=== PATIENT | male | born 1940 | race Caucasian/White ===

== ENCOUNTER 2017-07-02 12:38 | Observation (INO) | payer MEDICARE, OTHER ==
--- NOTE | 2017-07-02 13:21 | EDM.PDOC ---
ED HPI GENERAL MEDICAL PROBLEM - General Chief Complaint: Syncope Stated Complaint: DIZZINESS Time Seen by Provider: 07/02/17 12:59 Source of Information: Reports: Patient History Limitations: Reports: No Limitations - History of Present Illness INITIAL COMMENTS - FREE TEXT/NARRATIVE: This patient is a pleasant 76 year old male that presents to the ER. The patient reports that he was [place] the post office this [place] in [place]. He was standing and talking to a friend, he reports reaching down for something and saying he felt dizzy, then passing out falling backwards. He reports his friend told him he "came to" after he fell. The patient reports that he felt dizzy prior to the fall and has some dizziness now. He reports that he feels generally weak. Patient reports that he had fallen about two months ago from dizziness then and all tests were normal. The patient reports that he has a mild posterior headache where he hit the ground and left posterior hip pain. The patient reports that after he fell this morning at the post office, he was able to get up and drive himself home 10 miles without difficulty. The patient denies n, v, d, f, cp, soa, abd pain, urinary changes, rashes. The patient denies any unilateral weaknesses. Patient in the ER was able to ambulate to the bathroom without difficulty, but with assistance. The patient is fully alert and oriented. The patient reports that for several weeks he has pressure in his "eustachian tubes." He reports that his hearing bilaterally has been muffled. Patient denies any seizure activity or any confusion period. Extremities, pulses +2, cap refill < 2sec, sensory/motor function intact, neurovascular intact. No shortening. Onset: Today Onset Date: 07/02/17 Onset Time: 09:00 Location: Reports: Head, Lower Extremity, Left Severity: Mild Improves with: Reports: None Worsens with: Reports: None Associated Symptoms: Reports: Headaches, Syncope, Weakness (generally). Denies : Confusion, Chest Pain, Cough, cough w sputum, Diaphoresis, Fever/Chills, Loss of Appetite, Malaise, Nausea/Vomiting, Rash, Seizure, Shortness of Breath Left Hip Pain Score (Numeric/FACES): 4 - Related Data Allergies Allergy/AdvReac Type Severity Reaction Status Date / Time amoxicillin [From Augmentin] Allergy Rash Verified 12/10/16 09:36 atorvastatin [From Lipitor] Allergy Body Aches Verified 12/10/16 09:36 clavulanic acid Allergy Rash Verified 12/10/16 09:36 [From Augmentin] mushroom Allergy Cannot Verified 07/02/17 12:45 Remember propoxyphene Allergy Rash Verified 12/10/16 09:36 tomato Allergy Hives Verified 12/10/16 09:36 bee sting Allergy Fainting Uncoded 12/10/16 09:36 Home Meds: Home Meds Aspirin [Ecotrin] 325 mg PO DAILY 12/07/16 [History] Ezetimibe [Zetia] 10 mg PO DAILY 12/07/16 [History] Metoprolol Succinate 50 mg PO DAILY 12/07/16 [History] Nitroglycerin [Nitrostat] 0.4 mg SL ASDIRECTED PRN 12/07/16 [History] Simvastatin [Zocor] 80 mg PO DAILY 12/07/16 [History] Folic Acid 0.8 mg PO DAILY 07/02/17 [History] Past Medical History HEENT History: Reports: Hard of Hearing, Impaired Vision Cardiovascular History: Reports: Bypass Musculoskeletal History: Reports: Arthritis Neurological History: Reports: Head Trauma Psychiatric History: Reports: Addiction Other Psychiatric History: Nicotine Oncologic (Cancer) History: Reports: Prostate Other Oncologic History: Prostate removed - Past Surgical History Cardiovascular Surgical History: Reports: Coronary Artery Bypass Social & Family History - Tobacco Use Smoking Status *Q: Current Every Day Smoker Years of Tobacco use: 60 Packs/Tins Daily: 0.5 - Caffeine Use Caffeine Use: Reports: Coffee - Recreational Drug Use Recreational Drug Use: No ED ROS GENERAL - Review of Systems Review Of Systems: See Below Constitutional: Reports: Weakness (generalized) HEENT: Reports: Hearing Loss (muffled bilaterally ), Other (pressure in tubes per patient. ) Respiratory: Reports: No Symptoms Cardiovascular: Reports: Lightheadedness, Syncope Endocrine: Reports: No Symptoms GI/Abdominal: Reports: No Symptoms : Reports: No Symptoms Musculoskeletal: Reports: Joint Pain (left posterior hip pain) Skin: Reports: No Symptoms Neurological: Reports: Headache (posterior mild), Syncope Psychiatric: Reports: No Symptoms Hematologic/Lymphatic: Reports: No Symptoms Immunologic: Reports: No Symptoms - Physical Exam Exam: See Below Exam Limited By: No Limitations General Appearance: Alert, WD/WN, No Apparent Distress Eye Exam: Bilateral Eye: EOMI, Normal Fundi, Normal Inspection, PERRL Ears: Normal External Exam, Normal Canal, Hearing Grossly Normal, Normal TMs Nose: Normal Inspection, Normal Mucosa, No Blood Throat/Mouth: Normal Inspection, Normal Lips, Normal Teeth, Normal Gums, Normal Oropharynx, Normal Voice, No Airway Compromise Head Exam: Scalp Ecchymosis (mild posterior), Scalp Tenderness (mild posterior) Neck: Normal Inspection, Supple, Non-Tender, Full Range of Motion. No: Limited Range of Motion, Tender Lateral, Tender Midline Respiratory/Chest: No Respiratory Distress, Lungs Clear, Normal Breath Sounds, No Accessory Muscle Use, Chest Non-Tender Cardiovascular: Normal Peripheral Pulses, Regular Rate, Rhythm, No Edema, No Gallop, No JVD, No Murmur, No Rub GI/Abdominal: Normal Bowel Sounds, Soft, Non-Tender, No Organomegaly, No Distention, No Abnormal Bruit, No Mass, Pelvis Stable Neuro Exam (Abbreviated): Alert, Oriented, CN II-XII Intact, Normal Cognition, Normal Gait, No Motor/Sensory Deficits. No: Inattentive, Confused, Disoriented , Slow to Respond, Unresponsive, Memory Loss Recent Events, Abnormal Gait, Sensory/Motor Deficit Back Exam: Normal Inspection, Full Range of Motion. No: CVA Tenderness (L), CVA Tenderness (R) Extremities: Normal Inspection, Normal Range of Motion, No Pedal Edema, Normal Capillary Refill, Other (left posterior hip mild tenderness. ). No: Joint Swelling, Arm Pain, Limited Range of Motion, Mottled, Pallor, Redness Psychiatric: Normal Affect, Normal Mood Skin Exam: Warm, Dry, Intact, Normal Color, No Rash, Ecchymosis (mild posterior scalp. ) EKG INTERPRETATION EKG Date: 07/02/17 Time: 13:21 Rhythm: NSR Rate (Beats/Min): 63 [place]: Normal P-Wave: Present QRS: Normal ST-T: Normal QT: Normal Course - Vital Signs Last Recorded V/S: Last Vital Signs Temp 97.4 F 07/02/17 12:41 Pulse 61 07/02/17 12:41 Resp 16 07/02/17 12:41 BP 169/77 H 07/02/17 12:41 Pulse Ox 97 07/02/17 12:41 - Orders/Labs/Meds Orders: Active Orders 24 hr Category Date Time Status EKG Documentation Completion [RC] STAT Care 07/02/17 12:59 Inactive Cervical Spine wo Cont [CT] Stat Exams 07/02/17 13:01 Ordered Chest 2V [CR] Stat Exams 07/02/17 13:01 Taken Head wo Cont [CT] Stat Exams 07/02/17 12:59 Taken Hip Min 2V or 3V w Pelvis Lt [CR] Stat Exams 07/02/17 13:01 Taken Sodium Chloride 0.9% [Normal Saline] 1,000 ml Med 07/02/17 13:42 Active IV .BOLUS Medication Orders Sodium Chloride (Normal Saline) 1,000 mls @ 1,000 mls/hr IV .BOLUS ONE Stop: 07/02/17 14:41 Last Admin: 07/02/17 13:54 Dose: 1,000 mls/hr Labs: Laboratory Tests 07/02/17 07/02/17 07/02/17 Range/Units 13:05 13:05 13:05 WBC 13.1 H (5.0-10.0) 10^3/uL RBC 5.31 (4.50-6.00) 10^6/uL Hgb 13.4 L (14.0-18.0) g/dL Hct 41.4 (40.0-54.0) % MCV 78.0 L (82.0-94.0) fL MCH 25.2 L (27.0-32.0) pg MCHC 32.4 L (33.0-38.0) g/dL RDW Coeff of Mary 16.5 H (11.0-15.0) % Plt Count 283 (150-400) 10^3/uL Neut % (Auto) 79.9 (35-85) % Lymph % (Auto) 10.1 (10-55) % [place] % (Auto) 9.1 (0-16) % Eos % (Auto) 0.4 (0-5) % Baso % (Auto) 0.5 (0-3) % Neut # (Auto) 10.49 H (1.80-7.00) 10^3/uL Lymph # (Auto) 1.32 (1.00-4.80) 10^3/uL [place] # (Auto) 1.20 H (0.00-0.80) 10^3/uL Eos # (Auto) 0.05 (0.00-0.45) 10^3/uL Baso # (Auto) 0.07 10^3/uL Sodium 142 (136-145) mEq/L Potassium 4.8 (3.5-5.0) mEq/L Chloride 106 (98-106) mEq/L Carbon Dioxide 26 (21-32) mmol/L BUN 25 H (7-18) mg/dL Creatinine 1.5 H (0.7-1.3) mg/dL Est Cr Clr Drug Dosing 38.37 mL/min Estimated GFR (MDRD) 45 L (>=60) mL/min Glucose 99 (75-99) mg/dL Calcium 8.9 (8.4-10.1) mg/dL Total Bilirubin 0.7 (0.0-1.0) mg/dL AST 20 (15-37) U/L ALT 14 (12-78) U/L Alkaline Phosphatase 60 (46-116) U/L Creatine Kinase 151 (35-232) U/L Troponin I < 0.017 (0.00-0.06) ng/mL [id number] Pept 235 (0-1000) pg/nL Total Protein 7.2 (6.4-8.2) g/dL Albumin 3.9 (3.4-5.0) g/dL Urine Color Dark yellow (YELLOW) Urine Appearance Clear (CLEAR) Urine pH 5.5 (4.5-8.0) Ur Specific [place] 1.025 H (1.003-1.020) Urine Protein Trace H (NEGATIVE) mg/dL Urine Glucose (UA) Negative (NEGATIVE) mg/dL Urine Ketones Trace H (NEGATIVE) mg/dL Urine Occult Blood Negative (NEGATIVE) Urine Nitrite Negative (NEGATIVE) Urine Bilirubin Negative (NEGATIVE) Urine Urobilinogen 0.2 (0.2-1.0) EU/dL Ur Leukocyte Esterase Trace H (NEGATIVE) Urine RBC 0-5 (0-5) /HPF Urine WBC 5-10 H (0-5) /HPF Urine WBC Clumps Occasional H (NOT SEEN) /HPF Ur Squamous Epith Cells Few H (NOT SEEN) /HPF Urine Bacteria Occasional H (NOT SEEN) /HPF Urine Mucus Few H (NOT SEEN) /HPF Meds: Medications Generic Name Dose Route Start Last Admin Trade Name Freq PRN Reason Stop Dose Admin Sodium Chloride 1,000 mls @ 1,000 mls/hr 07/02/17 13:42 07/02/17 13:54 Normal Saline IV 07/02/17 14:41 1,000 mls/hr .BOLUS ONE Administration Discontinued Medications Generic Name Dose Route Start Last Admin Trade Name Melba PRN Reason Stop Dose Admin Ceftriaxone Sodium 1 gm 07/02/17 13:43 07/02/17 13:57 Rocephin IVPUSH 07/02/17 13:44 1 gm ONETIME ONE Administration - Radiology Interpretation Free Text/Narrative:: CXR: No infiltrates, no pulmonary edema, no hemo or pneumo thorax. Left hip: OA, no fx, no dislocation. CT cervical interpreted : no fx, normal exam. CT Head interpreted by radiologis: subarachnoid blood left sulci frontal trace. No subdural, no shift. - Re-Assessments/Exams Free Text/Narrative Re-Assessment/Exam: 07/02/17 14:27 I called and spoke to Dr. Frey neurosurgeon [facility] about this patient. He reported that there is nothing that he would do for this patient. He would not repeat a ct scan either. Said since I am admitted for renal insufficiency, just monitor him, could discharge tomorrow from neurosurgeon end. Departure - Departure Time of Disposition: 14:30 Disposition: Refer to Observation Condition: Fair Clinical Impression: Renal insufficiency, Subarachnoid bleed Urinary tract infection Qualifiers: Urinary tract infection type: urethritis Qualified Code(s): N34.2 - Other urethritis Syncope Qualifiers: Syncope type: unspecified Qualified Code(s): R55 - Syncope and collapse - Discharge Information Forms: ED Department Discharge - My Orders Last 24 Hours: My Active Orders 07/02/17 12:59 EKG Documentation Completion [RC] STAT Head wo Cont [CT] Stat 07/02/17 13:01 Cervical Spine wo Cont [CT] Stat Chest 2V [CR] Stat Hip Min 2V or 3V w Pelvis Lt [CR] Stat 07/02/17 13:42 Sodium Chloride 0.9% [Normal Saline] 1,000 ml IV .BOLUS - Assessment/Plan Last 24 Hours: My Active Orders 07/02/17 12:59 EKG Documentation Completion [RC] STAT Head wo Cont [CT] Stat 07/02/17 13:01 Cervical Spine wo Cont [CT] Stat Chest 2V [CR] Stat Hip Min 2V or 3V w Pelvis Lt [CR] Stat 07/02/17 13:42 Sodium Chloride 0.9% [Normal Saline] 1,000 ml IV .BOLUS Plan: PLEASE SEE RN NOTE FOR PFSH. PLEASE SEE ER H&P FOR ADMIT H&P.
[2017-07-02 13:36] LABS: CHLORIDE,CL 106 mEq/L (98-106); SODIUM,NA 142 mEq/L (136-145)
[2017-07-02] MEDS ORDERED: Sodium Chloride 0.9% 1,000 ML IV ONE (13:42)
[2017-07-02] MEDS ORDERED: cefTRIAXone 1 GM Vial IVPUSH ONE (13:43)
[2017-07-02] MEDS ORDERED: Acetaminophen 325 MG Tab PO PRN (15:29)
[2017-07-02] MEDS ORDERED: Morphine 2 MG/ML Syringe IVPUSH PRN (15:29)
[2017-07-02] MEDS ORDERED: Enoxaparin 30 MG/0.3 ML Syringe SUBCUT SCH (15:29)
[2017-07-02] MEDS ORDERED: Nitroglycerin 0.4 MG Tab.SL SL PRN (15:29)
[2017-07-02] MEDS ORDERED: Acetaminophen/HYDROcodone 325-5 MG Tab PO PRN (15:29)
[2017-07-02] MEDS ORDERED: Ondansetron 4 MG/2 ML SDV IV PRN (15:29)
[2017-07-02] MEDS: Sodium Chloride 0.9% 1,000 ML IV SCH (16:15)
[2017-07-02] MEDS: Metoprolol Succinate 25 MG Tab.ER PO SCH (16:20)
[2017-07-03] MEDS: Sodium Chloride 0.9% 1,000 ML IV SCH (00:41)
[2017-07-03 07:19] LABS: CHLORIDE,CL 110 mEq/L (98-106); SODIUM,NA 144 mEq/L (136-145)
[2017-07-03 08:00] VITALS: BP 153/70
[2017-07-03] MEDS ORDERED: cefTRIAXone 1 GM Vial IVPUSH SCH (08:00)
[2017-07-03] MEDS ORDERED: Folic Acid 1 MG Tab PO SCH (08:00)
[2017-07-03] MEDS ORDERED: EZETIMIBE 10 MG PO SCH (08:00)
[2017-07-03] MEDS: Metoprolol Succinate 25 MG Tab.ER PO SCH (08:08)
--- NOTE | 2017-07-03 09:04 | PCM.PN ---
- General Info Date of Service: 07/03/17 Functional Status: Reports: Pain Controlled - Review of Systems General: Reports: No Symptoms. Denies: Weakness HEENT: Reports: No Symptoms Pulmonary: Reports: No Symptoms Cardiovascular: Reports: No Symptoms Gastrointestinal: Reports: No Symptoms Genitourinary: Reports: No Symptoms Musculoskeletal: Reports: No Symptoms Skin: Reports: No Symptoms Neurological: Reports: No Symptoms. Denies: Headache, Seizure, Syncope, Tremors , Difficulty Walking, Weakness, Change in Speech, Gait Disturbance Psychiatric: Reports: No Symptoms - Patient Data Vitals - Most Recent: Last Vital Signs Temp 98.7 F 07/03/17 07:57 Pulse 54 L 07/03/17 08:08 Resp 20 07/03/17 07:57 BP 153/70 H 07/03/17 08:08 Pulse Ox 96 07/03/17 07:57 Weight - Most Recent: 145 lb I&O - Last 24 Hours: Intake & Output 07/02/17 07/03/17 07/03/17 22:59 06:59 14:59 Intake Total 1000 Balance 1000 Lab Results Last 24 Hours: Laboratory Results - last 24 hr 07/03/17 07/03/17 Range/Units 06:50 06:50 WBC 8.5 (5.0-10.0) 10^3/uL RBC 4.88 (4.50-6.00) 10^6/uL Hgb 12.4 L (14.0-18.0) g/dL Hct 38.0 L (40.0-54.0) % MCV 77.9 L (82.0-94.0) fL MCH 25.4 L (27.0-32.0) pg MCHC 32.6 L (33.0-38.0) g/dL RDW Coeff of Mary 16.3 H (11.0-15.0) % Plt Count 230 (150-400) 10^3/uL Neut % (Auto) 67.6 (35-85) % Lymph % (Auto) 16.3 (10-55) % [place] % (Auto) 11.7 (0-16) % Eos % (Auto) 3.6 (0-5) % Baso % (Auto) 0.8 (0-3) % Neut # (Auto) 5.75 (1.80-7.00) 10^3/uL Lymph # (Auto) 1.39 (1.00-4.80) 10^3/uL [place] # (Auto) 1.00 H (0.00-0.80) 10^3/uL Eos # (Auto) 0.31 (0.00-0.45) 10^3/uL Baso # (Auto) 0.07 10^3/uL Sodium 144 (136-145) mEq/L Potassium 4.5 (3.5-5.0) mEq/L Chloride 110 H (98-106) mEq/L Carbon Dioxide 27 (21-32) mmol/L BUN 17 (7-18) mg/dL Creatinine 1.1 (0.7-1.3) mg/dL Est Cr Clr Drug Dosing 52.32 mL/min Estimated GFR (MDRD) > 60 (>=60) mL/min Glucose 94 (75-99) mg/dL Calcium 7.9 L (8.4-10.1) mg/dL Med Orders - Current: Current Medications Acetaminophen (Tylenol) 650 mg PO Q4H PRN PRN Reason: Pain (Mild 1-3)/fever Hydrocodone Bitart/Acetaminophen ([facility] 325-5 Mg) 1 tab PO Q4H PRN PRN Reason: Pain (moderate 4-6) Ceftriaxone Sodium (Rocephin) 1 gm IVPUSH Q24H [facility] Last Admin: 07/03/17 07:42 Dose: 1 gm Folic Acid (Folic Acid) 1 mg PO DAILY [facility] Last Admin: 07/03/17 08:08 Dose: Not Given Sodium Chloride (Normal Saline) 1,000 mls @ 125 mls/hr IV ASDIRECTED [facility] Last Admin: 07/03/17 00:41 Dose: 125 mls/hr Metoprolol Succinate (Toprol Xl) 50 mg PO DAILY [facility] Last Admin: 07/03/17 08:08 Dose: Not Given Nitroglycerin (Nitrostat) 0.4 mg SL Q5M PRN PRN Reason: Chest Pain Ptom (Ezetimibe [ (Zetia] 10 Mg)) 10 mg PO DAILY [facility] Last Admin: 07/03/17 08:08 Dose: Not Given Ptom (Simvastatin [ (Zocor] 80 Mg)) 80 mg PO BEDTIME [facility] Ondansetron HCl (Zofran) 4 mg IV Q6H PRN PRN Reason: Nausea/Vomiting Discontinued Medications Ceftriaxone Sodium (Rocephin) 1 gm IVPUSH ONETIME ONE Stop: 07/02/17 13:44 Last Admin: 07/02/17 13:57 Dose: 1 gm Enoxaparin Sodium (Lovenox) 30 mg SUBCUT Q24H [facility] Last Admin: 07/02/17 17:03 Dose: Not Given Sodium Chloride (Normal Saline) 1,000 mls @ 1,000 mls/hr IV .BOLUS ONE Stop: 07/02/17 14:41 Last Admin: 07/02/17 13:54 Dose: 1,000 mls/hr Morphine Sulfate (Morphine) 2 mg IVPUSH Q2H PRN PRN Reason: Pain (severe 7-10) - Exam General: Alert, Oriented, Cooperative, No Acute Distress HEENT: Pupils Equal, Pupils Reactive, EOMI, Mucous Membr. Moist/[place] Neck: Supple Lungs: Clear to Auscultation, Normal Respiratory Effort Cardiovascular: Regular Rate, Regular Rhythm GI/Abdominal Exam: Normal Bowel Sounds, Soft, Non-Tender Back Exam: Normal Inspection, Full Range of Motion Extremities: Normal Inspection, Normal Range of Motion, Non-Tender, No Pedal Edema, Normal Capillary Refill Peripheral Pulses: 2+: Posterior Tibial (L), Posterior Tibial (R) Skin: Warm, Dry, Intact, Ecchymosis (posterior scalp. ) Neurological: No New Focal Deficit Psy/Mental Status: Alert, Normal Affect, Normal Mood - Problem List Review Problem List Initiated/Reviewed/Updated: Yes - My Orders Last 24 Hours: My Active Orders 07/03/17 08:52 CULTURE URINE [RM] Stat - Plan Plan:: This patient is a 76 year old male that was admitted yesterday for observation for UTI, Syncope, dizziness, renal insufficiency. The patient states that he is going home today. He reports that he will not stay any longer. The patient reports that he feels much improved. He reports that he has no pain, no dizziness, no general weakness. He reports that he feels like his old self. He reports he feels much better and is ready to go home. Patient labs yesterday were BUN 25, CR 1.5, WBC 13.1 Today, his labs are BUN 17, CR 1.1, WBC 8.5. Patient has had no neuro changes. I will discharge the patient home on antibiotics. He is to followup with his PCP on Wednesday.
--- NOTE | 2017-07-03 09:15 | PCM.DCSUM1 ---
Discharge Summary - Hospital Course HPI Initial Comments: PLEASE MERGE THIS NOTE WITH THE PROVIDER NOTE FROM TODAY. - Discharge Data Discharge Date: 07/03/17 Discharge Disposition: Home, Self-Care 01 Condition: Good - Patient Instructions Diet: Usual Diet as Tolerated Activity: As Tolerated Driving: May Drive Today Showering/Bathing: May Shower Notify Provider of: Fever, Increased Pain, Swelling and Redness, Drainage, Nausea and/or Vomiting - Discharge Plan Prescriptions/Med Rec: Cefdinir 300 mg PO BID #14 capsule Home Medications: Home Meds Aspirin [Ecotrin] 325 mg PO DAILY 12/07/16 [History] Ezetimibe [Zetia] 10 mg PO DAILY 12/07/16 [History] Metoprolol Succinate 50 mg PO DAILY 12/07/16 [History] Nitroglycerin [Nitrostat] 0.4 mg SL ASDIRECTED PRN 12/07/16 [History] Simvastatin [Zocor] 80 mg PO DAILY 12/07/16 [History] Folic Acid 0.8 mg PO DAILY 07/02/17 [History] Cefdinir 300 mg PO BID #14 capsule 07/03/17 [Rx] Forms: ED Department Discharge Referrals: PCP,None [Primary Care Provider] - - Discharge Summary/Plan Comment DC Time >30 min.: No - General Info Date of Service: 07/03/17 Functional Status: Reports: Pain Controlled - Review of Systems General: Reports: No Symptoms HEENT: Reports: No Symptoms Pulmonary: Reports: No Symptoms Cardiovascular: Reports: No Symptoms Gastrointestinal: Reports: No Symptoms Genitourinary: Reports: No Symptoms Musculoskeletal: Reports: No Symptoms Skin: Reports: No Symptoms Neurological: Reports: No Symptoms Psychiatric: Reports: No Symptoms - Patient Data Vitals - Most Recent: Last Vital Signs Temp 98.7 F 07/03/17 07:57 Pulse 54 L 07/03/17 08:08 Resp 20 07/03/17 07:57 BP 153/70 H 07/03/17 08:08 Pulse Ox 96 07/03/17 07:57 Weight - Most Recent: 145 lb I&O - Last 24 hours: Intake & Output 07/02/17 07/03/17 07/03/17 22:59 06:59 14:59 Intake Total 1000 Balance 1000 Lab Results - Last 24 hrs: Laboratory Results - last 24 hr 07/03/17 07/03/17 Range/Units 06:50 06:50 WBC 8.5 (5.0-10.0) 10^3/uL RBC 4.88 (4.50-6.00) 10^6/uL Hgb 12.4 L (14.0-18.0) g/dL Hct 38.0 L (40.0-54.0) % MCV 77.9 L (82.0-94.0) fL MCH 25.4 L (27.0-32.0) pg MCHC 32.6 L (33.0-38.0) g/dL RDW Coeff of Mary 16.3 H (11.0-15.0) % Plt Count 230 (150-400) 10^3/uL Neut % (Auto) 67.6 (35-85) % Lymph % (Auto) 16.3 (10-55) % [place] % (Auto) 11.7 (0-16) % Eos % (Auto) 3.6 (0-5) % Baso % (Auto) 0.8 (0-3) % Neut # (Auto) 5.75 (1.80-7.00) 10^3/uL Lymph # (Auto) 1.39 (1.00-4.80) 10^3/uL [place] # (Auto) 1.00 H (0.00-0.80) 10^3/uL Eos # (Auto) 0.31 (0.00-0.45) 10^3/uL Baso # (Auto) 0.07 10^3/uL Sodium 144 (136-145) mEq/L Potassium 4.5 (3.5-5.0) mEq/L Chloride 110 H (98-106) mEq/L Carbon Dioxide 27 (21-32) mmol/L BUN 17 (7-18) mg/dL Creatinine 1.1 (0.7-1.3) mg/dL Est Cr Clr Drug Dosing 52.32 mL/min Estimated GFR (MDRD) > 60 (>=60) mL/min Glucose 94 (75-99) mg/dL Calcium 7.9 L (8.4-10.1) mg/dL Med Orders - Current: Current Medications Acetaminophen (Tylenol) 650 mg PO Q4H PRN PRN Reason: Pain (Mild 1-3)/fever Hydrocodone Bitart/Acetaminophen ([place] 325-5 Mg) 1 tab PO Q4H PRN PRN Reason: Pain (moderate 4-6) Ceftriaxone Sodium (Rocephin) 1 gm IVPUSH Q24H [facility] Last Admin: 07/03/17 07:42 Dose: 1 gm Folic Acid (Folic Acid) 1 mg PO DAILY [facility] Last Admin: 07/03/17 08:08 Dose: Not Given Sodium Chloride (Normal Saline) 1,000 mls @ 125 mls/hr IV ASDIRECTED [facility] Last Admin: 07/03/17 00:41 Dose: 125 mls/hr Metoprolol Succinate (Toprol Xl) 50 mg PO DAILY [facility] Last Admin: 07/03/17 08:08 Dose: Not Given Nitroglycerin (Nitrostat) 0.4 mg SL Q5M PRN PRN Reason: Chest Pain Ptom (Ezetimibe [ (Zetia] 10 Mg)) 10 mg PO DAILY [facility] Last Admin: 07/03/17 08:08 Dose: Not Given Ptom (Simvastatin [ (Zocor] 80 Mg)) 80 mg PO BEDTIME [facility] Ondansetron HCl (Zofran) 4 mg IV Q6H PRN PRN Reason: Nausea/Vomiting Discontinued Medications Ceftriaxone Sodium (Rocephin) 1 gm IVPUSH ONETIME ONE Stop: 07/02/17 13:44 Last Admin: 07/02/17 13:57 Dose: 1 gm Enoxaparin Sodium (Lovenox) 30 mg SUBCUT Q24H [facility] Last Admin: 07/02/17 17:03 Dose: Not Given Sodium Chloride (Normal Saline) 1,000 mls @ 1,000 mls/hr IV .BOLUS ONE Stop: 07/02/17 14:41 Last Admin: 07/02/17 13:54 Dose: 1,000 mls/hr Morphine Sulfate (Morphine) 2 mg IVPUSH Q2H PRN PRN Reason: Pain (severe 7-10) - Exam General: Reports: Alert, Oriented, Cooperative, No Acute Distress HEENT: Reports: Pupils Equal, Pupils Reactive, EOMI, Mucous Membr. Moist/[place] Neck: Reports: Supple Lungs: Reports: Clear to Auscultation, Normal Respiratory Effort Cardiovascular: Reports: Regular Rate, Regular Rhythm GI/Abdominal Exam: Normal Bowel Sounds, Soft, Non-Tender, No Organomegaly, No Distention, No Abnormal Bruit, No Mass, Pelvis Stable Back Exam: Reports: Normal Inspection, Full Range of Motion. Denies: CVA Tenderness (L), CVA Tenderness (R) Extremities: Normal Inspection, Normal Range of Motion, No Pedal Edema, Normal Capillary Refill, Other (Mid tenderness left posterior hip. ROM intact. ) Skin: Reports: Warm, Dry, Intact, Ecchymosis (posterior scalp. ) Neurological: Reports: No New Focal Deficit, Normal Gait, Normal Speech, Normal Tone, Strength Equal Bilateral, Sensation Intact, Cranial Nerves Intact Psy/Mental Status: Reports: Alert, Normal Affect, Normal Mood *Q Meaningful Use (DIS) - VTE *Q VTE Criteria *Q: - Stroke *Q Stroke Criteria *Q: - AMI *Q AMI Criteria *Q:
[2017-07-03] MEDS ORDERED: SIMVASTATIN 80 MG PO SCH (20:00)
== END 2017-07-03 09:45 | disposition home or self-care (01) ==
LOC: CC.ED 12:38 → CC.MS 14:35 → UNDOADMOB 14:35 → CC.MS 15:29
PROVIDERS: ADMIT Nurse Practitioner; ATTEND Nurse Practitioner
DX: N34.2 Other urethritis (principal); N28.9 Disorder of kidney and ureter, unspecified; I60.9 Nontraumatic subarachnoid hemorrhage, unspecified; R55 Syncope and collapse; R42 Dizziness and giddiness; R51 Headache; M25.552 Pain in left hip; F17.210 Nicotine dependence, cigarettes, uncomplicated; Z88.0 Allergy status to penicillin; Z88.8 Allergy status to other drugs, medicaments and biological substances; Z91.018 Allergy to other foods; Z91.030 Bee allergy status; Z79.82 Long term (current) use of aspirin; Z79.899 Other long term (current) drug therapy; Z85.46 Personal history of malignant neoplasm of prostate; Z95.1 Presence of aortocoronary bypass graft
CPT/HCPCS: 36415; 70450; 71020; 72125; 73502; 80048; 80053; 81001; 82550; 83880; 84484; 85025; 87086; 93005; 96361; 96374; 99284; J0696; J7030; 93010; 96376; 99217; 99220; A9270-GY; G0378

== ENCOUNTER 2021-02-20 14:23 | Emergency (ER) | payer MEDICARE, OTHER ==
[2021-02-20 14:49] LABS: CHLORIDE,CL 106 mEq/L (98-106); SODIUM,NA 142 mEq/L (136-145)
[2021-02-20 14:54] VITALS: BP 148/64; PULSE 64
[2021-02-20] MEDS ORDERED: Aspirin 81 MG Tab.Chew PO ONE (14:56)
[2021-02-20 15:03] LABS: PTT,PARTIAL THROMBOPLSTIN TIME 24.4 SEC (23.2-32.3)
--- NOTE | 2021-02-20 15:13 | EDM.PDOC ---
ED HPI GENERAL MEDICAL PROBLEM - General Chief Complaint: General Stated Complaint: HIGH BLOOD PRESSURE/CP Time Seen by Provider: 02/20/21 14:52 Source of Information: Reports: Patient, Family () History Limitations: Reports: No Limitations - History of Present Illness INITIAL COMMENTS - FREE TEXT/NARRATIVE: Pt states that he was at an appt in [place] at 0900 to get his ears cleaned out and hearing aids checked. He states that he gets nervous and doesn't like to drive in [place] any longer and when he was there his BP was high and he was told that he should go back to his primary and go to ER to have this checked. He states that after appt he went to eat and then came home. He did have a "twinge" of chest pain earlier but went away quickly. He states that he has not had any headache, dizziness with this. Onset: Today - Related Data Allergies Allergy/AdvReac Type Severity Reaction Status Date / Time amoxicillin [From Augmentin] Allergy Rash Verified 02/20/21 14:36 atorvastatin [From Lipitor] Allergy Body Aches Verified 02/20/21 14:36 clavulanic acid Allergy Rash Verified 02/20/21 14:36 [From Augmentin] mushroom Allergy Cannot Verified 02/20/21 14:36 Remember propoxyphene Allergy Rash Verified 02/20/21 14:36 tomato Allergy Hives Verified 02/20/21 14:36 bee sting Allergy Fainting Uncoded 02/20/21 14:36 Home Meds: Home Meds Aspirin [Ecotrin] 325 mg PO DAILY 12/07/16 [History] Ezetimibe [Zetia] 10 mg PO DAILY 12/07/16 [History] Nitroglycerin [Nitrostat] 0.4 mg SL ASDIRECTED PRN 12/07/16 [History] Simvastatin [Zocor] 80 mg PO DAILY 12/07/16 [History] Folic Acid 0.8 mg PO DAILY 07/02/17 [History] Past Medical History HEENT History: Reports: Cataract, Hard of Hearing, Impaired Vision Cardiovascular History: Reports: Bypass, Pacemaker, Syncope Respiratory History: Reports: Bronchitis, Recurrent Genitourinary History: Reports: Urinary Incontinence Musculoskeletal History: Reports: Arthritis, Neck Pain, Chronic Neurological History: Reports: Head Trauma Psychiatric History: Reports: Addiction Other Psychiatric History: Nicotine Oncologic (Cancer) History: Reports: Prostate Other Oncologic History: Prostate removed - Past Surgical History HEENT Surgical History: Reports: Cataract Surgery Cardiovascular Surgical History: Reports: Carotid Stents, Coronary Artery Bypass GI Surgical History: Reports: Appendectomy, Cholecystectomy, Colonoscopy Male Surgical History: Reports: Prostatectomy, Vasectomy Musculoskeletal Surgical History: Reports: Shoulder Surgery Other Musculoskeletal Surgeries/Procedures:: Rotator cuff bilateral Social & Family History - Caffeine Use Caffeine Use: Reports: Coffee - Living Situation & Occupation Living situation: Reports: , with Spouse Occupation: Employed ED ROS GENERAL - Review of Systems Review Of Systems: See Below Constitutional: Reports: No Symptoms HEENT: Reports: No Symptoms Respiratory: Reports: No Symptoms Cardiovascular: Reports: Chest Pain, Blood Pressure Problem GI/Abdominal: Reports: No Symptoms Neurological: Reports: No Symptoms ED EXAM, GENERAL - Physical Exam Exam: See Below Exam Limited By: No Limitations General Appearance: Alert, WD/WN, Mild Distress Ears: Normal External Exam, Normal Canal, Normal TMs Throat/Mouth: Normal Inspection, Normal Oropharynx Head: Atraumatic, Normocephalic Neck: Normal Inspection, Supple, Non-Tender Respiratory/Chest: Lungs Clear, Normal Breath Sounds, Chest Non-Tender Cardiovascular: Regular Rate, Rhythm, No Edema GI/Abdominal: Normal Bowel Sounds, Soft, Non-Tender Back Exam: Normal Inspection Extremities: Normal Inspection, Normal Capillary Refill Neurological: Alert, Oriented, CN II-XII Intact Skin Exam: Warm, Dry, Intact Course - Vital Signs Last Recorded V/S: Last Vital Signs Temp 98.6 F 02/20/21 14:52 Pulse 64 02/20/21 14:52 Resp 16 02/20/21 14:52 BP 148/64 H 02/20/21 14:52 Pulse Ox 94 L 02/20/21 14:52 - Orders/Labs/Meds Orders: Active Orders 24 hr Category Date Time Status Chest 2V [CR] Routine Exams 02/20/21 Taken Labs: Laboratory Tests 02/20/21 02/20/21 02/20/21 Range/Units 14:32 14:32 14:32 WBC 7.0 (5.0-10.0) 10^3/uL RBC 4.70 (4.50-6.00) 10^6/uL Hgb 11.9 L (14.0-18.0) g/dL Hct 36.5 L (40.0-54.0) % MCV 77.7 L (82.0-94.0) fL MCH 25.3 L (27.0-32.0) pg MCHC 32.6 L (33.0-38.0) g/dL RDW Coeff of Mary 16.4 H (11.0-15.0) % Plt Count 263 (150-400) 10^3/uL Neut % (Auto) 65.3 (35-85) % Lymph % (Auto) 19.0 (10-55) % [place] % (Auto) 11.1 (0-16) % Eos % (Auto) 3.6 (0-5) % Baso % (Auto) 1.0 (0-3) % Neut # (Auto) 4.54 (1.80-7.00) 10^3/uL Lymph # (Auto) 1.32 (1.00-4.80) 10^3/uL [place] # (Auto) 0.77 (0.00-0.80) 10^3/uL Eos # (Auto) 0.25 (0.00-0.45) 10^3/uL Baso # (Auto) 0.07 10^3/uL PT 10.5 (9.7-12.3) SEC INR 0.96 (0.92-1.18) APTT 24.4 (23.2-32.3) SEC Sodium 142 (136-145) mEq/L Potassium 3.9 (3.5-5.0) mEq/L Chloride 106 (98-106) mEq/L Carbon Dioxide 28 (21-32) mmol/L BUN 24 H (7-18) mg/dL Creatinine 1.5 H (0.7-1.3) mg/dL Est Cr Clr Drug Dosing TNP Estimated GFR (MDRD) 45 L (>=60) mL/min Glucose 139 H D (75-99) mg/dL Calcium 8.7 (8.4-10.1) mg/dL Total Bilirubin 0.4 (0.0-1.0) mg/dL AST 15 (15-37) U/L ALT 15 (12-78) U/L Alkaline Phosphatase 57 (46-116) U/L Lactate Dehydrogenase 102 (100-190) U/L Creatine Kinase 30 L (35-232) U/L Troponin I < 0.017 (0.00-0.06) ng/mL Total Protein 6.2 L (6.4-8.2) g/dL Albumin 3.3 L (3.4-5.0) g/dL Lipase 84 (73-393) U/L Meds: Medications Discontinued Medications Generic Name Dose Route Start Last Admin Trade Name Melba PRN Reason Stop Dose Admin Aspirin 324 mg 02/20/21 14:56 02/20/21 14:45 Aspirin 81 Mg Tab.Chew PO 02/20/21 14:57 324 mg ONETIME ONE Administration - Re-Assessments/Exams Free Text/Narrative Re-Assessment/Exam: 02/20/21 1500 Reviewed labs and EG with the pt and that his BP has been contro lled since being here. Will discharge pt at this time. recheck with Dr. Allen next week for BP check. Departure - Departure Time of Disposition: 15:11 Disposition: Home, Self-Care 01 Condition: Good Clinical Impression: High blood pressure Qualifiers: Hypertension type: unspecified Qualified Code(s): I10 - Essential (primary) hypertension - Discharge Information *PRESCRIPTION DRUG MONITORING PROGRAM REVIEWED*: Not Applicable *COPY OF PRESCRIPTION DRUG MONITORING REPORT IN PATIENT DEMETRIA: Not Applicable Referrals: Krystin Cerda PA-C [Primary Care Provider] - Forms: ED Department Discharge Additional Instructions: push fluids as much as possible Currently BP is stable and doesn't need to have any additional meds recheck in the clinic if any new concerns. Sepsis Event Note (ED) - Evaluation Sepsis Screening Result: No Definite Risk - Focused Exam Vital Signs: Vital Signs Temp Pulse Resp BP Pulse Ox 02/20/21 14:52 98.6 F 64 16 148/64 H 94 L - Problem List & Annotations (1) High blood pressure SNOMED Code(s): 86513818 Code(s): I10 - ESSENTIAL (PRIMARY) HYPERTENSION Status: Acute Qualifiers: Hypertension type: unspecified Qualified Code(s): I10 - Essential (primary) hypertension - Problem List Review Problem List Initiated/Reviewed/Updated: Yes - My Orders Last 24 Hours: My Active Orders 02/20/21 Chest 2V [CR] Routine - Assessment/Plan Last 24 Hours: My Active Orders 02/20/21 Chest 2V [CR] Routine
== END 2021-02-20 15:20 | disposition home or self-care (01) ==
LOC: CC.ED 14:23
DX: I10 Essential (primary) hypertension (principal); M19.90 Unspecified osteoarthritis, unspecified site; Z88.0 Allergy status to penicillin; Z88.1 Allergy status to other antibiotic agents; Z91.018 Allergy to other foods; Z91.030 Bee allergy status; Z79.82 Long term (current) use of aspirin; Z79.899 Other long term (current) drug therapy
CPT/HCPCS: 36415; 71046; 80053; 82550; 83615; 83690; 84484; 85025; 85610; 85730; 93005; 93010; 99284; 99284-25; A9270-GY

== ENCOUNTER 2023-04-30 11:34 | Inpatient (IN) | payer MEDICARE, OTHER ==
[2023-04-30 11:58] LABS: ALANINE AMINOTRANSFERASE,ALT 20 U/L (12-78); ALBUMIN 3.6 g/dL (3.4-5.0); ALKALINE PHOSPHATASE 66 U/L (46-116); ASPARTATE AMNIOTRANSFERASE,AST 19 U/L (15-37); BILIRUBIN TOTAL 0.9 mg/dL (0.0-1.0); BLOOD UREA NITROGEN,BUN 27 mg/dL (7-18); CALCIUM 8.8 mg/dL (8.4-10.1); CARBON DIOXIDE,CO2 30 mmol/L (21-32); CHLORIDE,CL 101 mEq/L (98-106); CREATININE 1.4 mg/dL (0.7-1.3); GLUCOSE RANDOM 102 mg/dL (75-99); POTASSIUM,K 4.3 mEq/L (3.5-5.0); PROTEIN TOTAL,TP 6.9 g/dL (6.4-8.2); SODIUM,NA 137 mEq/L (136-145)
[2023-04-30 12:00] LABS: ESTIMATED GFR 50 mL/min (>=60)
[2023-04-30 12:03] LABS: APPEARANCE,URINE SLIGHTLY CLOUDY (CLEAR); BILIRUBIN,URINE NEGATIVE (NEGATIVE); COLOR,URINE DARK YELLOW (YELLOW); GLUCOSE,URINE NEGATIVE (NEGATIVE); KETONES,URINE NEGATIVE (NEGATIVE); LEUKOCYTE ESTERASE,URINE NEGATIVE (NEGATIVE); NITRITE,URINE NEGATIVE (NEGATIVE); OCCULT BLOOD,URINE NEGATIVE (NEGATIVE); PROTEIN,URINE NEGATIVE (NEGATIVE); UROBILINOGEN,URINE 0.2 EU/dL (0.2-1.0)
[2023-04-30 12:55] LABS: BASOPHILS ABSOLUTE AUTO 0.06 10^3/uL (0.00-0.50); BASOPHILS PERCENT AUTO 0.6 % (0-1); EOSINOPHILS ABSOLUTE AUTO 0.06 10^3/uL (0.00-1.50); EOSINOPHILS PERCENT AUTO 0.6 % (0-6); HEMATOCRIT 37.2 % (42.0-52.0); HEMOGLOBIN 11.7 g/dL (14.0-18.0); IMMATURE GRAN ABSOLUTE AUTO 0.04 10^3/uL (0.00-0.49); IMMATURE GRAN PERCENT AUTO 0.4 % (0.0-4.9); LYMPHOCYTES ABSOLUTE AUTO 1.17 10^3/uL (0.60-5.00); LYMPHOCYTES PERCENT AUTO 12.6 % (24-44); MEAN CORPUSCULAR HEMOGLOBIN 24.5 pg (27.0-32.0); MEAN CORPUSCULAR HGB CONC 31.5 g/dL (32.0-36.0); MONOCYTES ABSOLUTE AUTO 1.07 10^3/uL (0.00-1.50); MONOCYTES PERCENT AUTO 11.5 % (0-10); NEUTROPHILS ABSOLUTE AUTO 6.89 x10^3/uL (1.80-8.00); NEUTROPHILS PERCENT AUTO 74.3 % (41-71); PLATELET COUNT,PLT 242 10^3/uL (150-400); RED BLOOD CELL COUNT 4.77 x10^6/uL (4.50-6.00); WHITE BLOOD CELL COUNT,WBC 9.3 10^3/uL (4.0-11.0)
[2023-04-30] MEDS ORDERED: Docusate Sodium 100 MG Cap PO PRN (13:25)
[2023-04-30] MEDS ORDERED: Polyethylene Glycol 3350 Powder 17 GM Packet PO PRN (13:25)
[2023-04-30] MEDS ORDERED: Ondansetron 4 MG Tab.DIS PO PRN (13:25)
[2023-04-30] MEDS ORDERED: Cyclobenzaprine 10 MG Tab PO PRN (13:28)
[2023-04-30] MEDS ORDERED: Lidocaine 5% 700 MG Patch TRDERM SCH (13:30)
[2023-04-30] MEDS: Lidocaine 5% 700 MG Patch TRDERM SCH (14:12)
[2023-04-30] MEDS: Sodium Chloride 0.9% 1,000 ML IV SCH ×2 (14:14→22:25)
[2023-04-30] MEDS ORDERED: Meclizine 12.5 MG Tab PO PRN (14:19)
[2023-04-30] MEDS ORDERED: Non-Formulary Medication 1 Each (Azelastine Hcl [Azelastine Hcl] 137 MCG/0.137 ML Spray.Pu NS SCH (20:00)
[2023-04-30] MEDS: Simvastatin 40 MG Tab PO SCH (21:01)
[2023-04-30] MEDS: Acetaminophen 325 MG Tab PO PRN (23:49)
[2023-05-01] MEDS: Lisinopril 5 MG Tab PO SCH ×2 (00:49→08:23)
[2023-05-01] MEDS ORDERED: QUEtiapine 25 MG Tab PO ONE (01:37)
[2023-05-01] MEDS: Sodium Chloride 0.9% 1,000 ML IV SCH (06:52)
[2023-05-01 07:59] LABS: BASOPHILS ABSOLUTE AUTO 0.05 10^3/uL (0.00-0.50); BASOPHILS PERCENT AUTO 0.4 % (0-1); EOSINOPHILS ABSOLUTE AUTO 0.02 10^3/uL (0.00-1.50); EOSINOPHILS PERCENT AUTO 0.2 % (0-6); HEMATOCRIT 34.9 % (42.0-52.0); HEMOGLOBIN 11.1 g/dL (14.0-18.0); IMMATURE GRAN ABSOLUTE AUTO 0.06 10^3/uL (0.00-0.49); IMMATURE GRAN PERCENT AUTO 0.5 % (0.0-4.9); LYMPHOCYTES ABSOLUTE AUTO 0.83 10^3/uL (0.60-5.00); LYMPHOCYTES PERCENT AUTO 6.9 % (24-44); MEAN CORPUSCULAR HEMOGLOBIN 24.6 pg (27.0-32.0); MEAN CORPUSCULAR HGB CONC 31.8 g/dL (32.0-36.0); MEAN CORPUSCULAR VOLUME 77.4 fL (83.0-97.0); MONOCYTES ABSOLUTE AUTO 1.37 10^3/uL (0.00-1.50); MONOCYTES PERCENT AUTO 11.4 % (0-10); NEUTROPHILS PERCENT AUTO 80.6 % (41-71); PLATELET COUNT,PLT 222 10^3/uL (150-400); RED BLOOD CELL COUNT 4.51 x10^6/uL (4.50-6.00)
[2023-05-01 08:13] LABS: CALCIUM 8.4 mg/dL (8.4-10.1); EST CRCL DRUG DOSING (CG) 43.77 mL/min; POTASSIUM,K 3.8 mEq/L (3.5-5.0)
[2023-05-01] MEDS: Aspirin 81 MG Tab.EC PO SCH (08:24)
[2023-05-01] MEDS: Folic Acid 1 MG Tab PO SCH (08:24)
[2023-05-01] MEDS: Metoprolol Succinate 25 MG Tab.ER PO SCH (08:25)
[2023-05-01] MEDS: Lidocaine 5% 700 MG Patch TRDERM SCH (08:25)
[2023-05-01] MEDS: Ezetimibe 10 MG Tab PO SCH (08:37)
[2023-05-01] MEDS: Doxycycline 100 MG Tab PO SCH ×2 (13:19→19:38)
[2023-05-01] MEDS: cefTRIAXone 1 GM Vial IVPUSH SCH (13:19)
[2023-05-01] MEDS: Bacitracin/Polymyxin B Ophth Oint 3.5 GM Tube EYEBOTH SCH ×2 (13:35→19:53)
[2023-05-01] MEDS: Acetaminophen 325 MG Tab PO PRN (15:06)
[2023-05-01] MEDS: Simvastatin 40 MG Tab PO SCH (19:36)
[2023-05-01] MEDS: Melatonin 3 MG Tab PO SCH (19:37)
[2023-05-02] MEDS ORDERED: Lisinopril 5 MG Tab PO ONE (03:57)
[2023-05-02 07:37] LABS: BASOPHILS ABSOLUTE AUTO 0.05 10^3/uL (0.00-0.50); BASOPHILS PERCENT AUTO 0.5 % (0-1); EOSINOPHILS ABSOLUTE AUTO 0.08 10^3/uL (0.00-1.50); EOSINOPHILS PERCENT AUTO 0.8 % (0-6); IMMATURE GRAN ABSOLUTE AUTO 0.05 10^3/uL (0.00-0.49); IMMATURE GRAN PERCENT AUTO 0.5 % (0.0-4.9); LYMPHOCYTES ABSOLUTE AUTO 0.87 10^3/uL (0.60-5.00); LYMPHOCYTES PERCENT AUTO 8.8 % (24-44); MEAN CORPUSCULAR HEMOGLOBIN 24.8 pg (27.0-32.0); MEAN CORPUSCULAR HGB CONC 32.4 g/dL (32.0-36.0); MEAN CORPUSCULAR VOLUME 76.4 fL (83.0-97.0); MONOCYTES ABSOLUTE AUTO 1.15 10^3/uL (0.00-1.50); MONOCYTES PERCENT AUTO 11.6 % (0-10); NEUTROPHILS ABSOLUTE AUTO 7.68 x10^3/uL (1.80-8.00); NEUTROPHILS PERCENT AUTO 77.8 % (41-71); PLATELET COUNT,PLT 246 10^3/uL (150-400); RED BLOOD CELL COUNT 4.84 x10^6/uL (4.50-6.00); WHITE BLOOD CELL COUNT,WBC 9.9 10^3/uL (4.0-11.0)
[2023-05-02 08:06] LABS: CALCIUM 8.6 mg/dL (8.4-10.1); EST CRCL DRUG DOSING (CG) 43.77 mL/min; MAGNESIUM 1.9 mg/dL (1.8-2.4); POTASSIUM,K 3.7 mEq/L (3.5-5.0)
[2023-05-02] MEDS: Lisinopril 5 MG Tab PO SCH (08:40)
[2023-05-02] MEDS: Metoprolol Succinate 25 MG Tab.ER PO SCH (08:40)
[2023-05-02] MEDS: Folic Acid 1 MG Tab PO SCH (08:40)
[2023-05-02] MEDS: Doxycycline 100 MG Tab PO SCH ×2 (08:40→20:14)
[2023-05-02] MEDS: Aspirin 81 MG Tab.EC PO SCH (08:40)
[2023-05-02] MEDS: Bacitracin/Polymyxin B Ophth Oint 3.5 GM Tube EYEBOTH SCH ×3 (08:41→20:14)
[2023-05-02] MEDS: Ezetimibe 10 MG Tab PO SCH (08:41)
[2023-05-02] MEDS: Lidocaine 5% 700 MG Patch TRDERM SCH (08:41)
[2023-05-02] MEDS: cefTRIAXone 1 GM Vial IVPUSH SCH (13:56)
[2023-05-02] MEDS: Acetaminophen 325 MG Tab PO PRN (14:13)
[2023-05-02] MEDS ORDERED: Sodium Chloride 0.9% 500 ML IV SCH (15:15)
[2023-05-02] MEDS ORDERED: Iopamidol 755 Mg/ML 100 ML Bottle IVPUSH ONE (15:22)
[2023-05-02] MEDS ORDERED: Bisacodyl 10 MG Supp RECTAL ONE (16:10)
[2023-05-02] MEDS: Melatonin 3 MG Tab PO SCH (20:14)
[2023-05-02] MEDS: Simvastatin 40 MG Tab PO SCH (20:14)
[2023-05-03 07:24] LABS: BASOPHILS ABSOLUTE AUTO 0.05 10^3/uL (0.00-0.50); BASOPHILS PERCENT AUTO 0.5 % (0-1); EOSINOPHILS ABSOLUTE AUTO 0.15 10^3/uL (0.00-1.50); EOSINOPHILS PERCENT AUTO 1.4 % (0-6); HEMOGLOBIN 10.9 g/dL (14.0-18.0); IMMATURE GRAN ABSOLUTE AUTO 0.05 10^3/uL (0.00-0.49); IMMATURE GRAN PERCENT AUTO 0.5 % (0.0-4.9); LYMPHOCYTES ABSOLUTE AUTO 1.14 10^3/uL (0.60-5.00); LYMPHOCYTES PERCENT AUTO 10.9 % (24-44); MEAN CORPUSCULAR HEMOGLOBIN 24.5 pg (27.0-32.0); MEAN CORPUSCULAR HGB CONC 32.1 g/dL (32.0-36.0); MEAN CORPUSCULAR VOLUME 76.4 fL (83.0-97.0); MONOCYTES ABSOLUTE AUTO 1.23 10^3/uL (0.00-1.50); MONOCYTES PERCENT AUTO 11.7 % (0-10); NEUTROPHILS ABSOLUTE AUTO 7.85 x10^3/uL (1.80-8.00); PLATELET COUNT,PLT 245 10^3/uL (150-400); RED BLOOD CELL COUNT 4.45 x10^6/uL (4.50-6.00); WHITE BLOOD CELL COUNT,WBC 10.5 10^3/uL (4.0-11.0)
[2023-05-03] MEDS: Lisinopril 5 MG Tab PO SCH (07:28)
[2023-05-03] MEDS: Lidocaine 5% 700 MG Patch TRDERM SCH (07:28)
[2023-05-03] MEDS: Ezetimibe 10 MG Tab PO SCH (07:29)
[2023-05-03] MEDS: Folic Acid 1 MG Tab PO SCH (07:29)
[2023-05-03] MEDS: Metoprolol Succinate 25 MG Tab.ER PO SCH (07:29)
[2023-05-03] MEDS: Doxycycline 100 MG Tab PO SCH ×2 (07:29→20:02)
[2023-05-03] MEDS: Bacitracin/Polymyxin B Ophth Oint 3.5 GM Tube EYEBOTH SCH ×3 (07:30→19:54)
[2023-05-03] MEDS: Aspirin 81 MG Tab.EC PO SCH (07:30)
[2023-05-03 08:11] LABS: CALCIUM 8.4 mg/dL (8.4-10.1); CREATININE 1.1 mg/dL (0.7-1.3); EST CRCL DRUG DOSING (CG) 39.79 mL/min; POTASSIUM,K 3.6 mEq/L (3.5-5.0)
[2023-05-03] MEDS: Acetaminophen 325 MG Tab PO PRN ×2 (08:58→22:10)
[2023-05-03] MEDS: cefTRIAXone 1 GM Vial IVPUSH SCH (13:30)
[2023-05-03] MEDS: Melatonin 3 MG Tab PO SCH (20:01)
[2023-05-03] MEDS: Simvastatin 40 MG Tab PO SCH (20:01)
[2023-05-04] MEDS: Lidocaine 5% 700 MG Patch TRDERM SCH (07:32)
[2023-05-04] MEDS: Doxycycline 100 MG Tab PO SCH (07:32)
[2023-05-04] MEDS: Folic Acid 1 MG Tab PO SCH (07:33)
[2023-05-04] MEDS: Aspirin 81 MG Tab.EC PO SCH (07:33)
[2023-05-04] MEDS: Lisinopril 5 MG Tab PO SCH (07:33)
[2023-05-04] MEDS: Ezetimibe 10 MG Tab PO SCH (07:33)
[2023-05-04] MEDS: Metoprolol Succinate 25 MG Tab.ER PO SCH (07:33)
[2023-05-04] MEDS: Bacitracin/Polymyxin B Ophth Oint 3.5 GM Tube EYEBOTH SCH (07:36)
[2023-05-04 07:37] VITALS: BP 188/66; PULSE 69
[2023-05-04 08:10] LABS: BASOPHILS ABSOLUTE AUTO 0.06 10^3/uL (0.00-0.50); BASOPHILS PERCENT AUTO 0.6 % (0-1); EOSINOPHILS ABSOLUTE AUTO 0.18 10^3/uL (0.00-1.50); EOSINOPHILS PERCENT AUTO 1.8 % (0-6); HEMATOCRIT 38.6 % (42.0-52.0); HEMOGLOBIN 12.3 g/dL (14.0-18.0); IMMATURE GRAN ABSOLUTE AUTO 0.04 10^3/uL (0.00-0.49); IMMATURE GRAN PERCENT AUTO 0.4 % (0.0-4.9); LYMPHOCYTES ABSOLUTE AUTO 0.85 10^3/uL (0.60-5.00); LYMPHOCYTES PERCENT AUTO 8.7 % (24-44); MEAN CORPUSCULAR HEMOGLOBIN 24.6 pg (27.0-32.0); MEAN CORPUSCULAR HGB CONC 31.9 g/dL (32.0-36.0); MONOCYTES ABSOLUTE AUTO 0.74 10^3/uL (0.00-1.50); MONOCYTES PERCENT AUTO 7.5 % (0-10); NEUTROPHILS ABSOLUTE AUTO 7.94 x10^3/uL (1.80-8.00); PLATELET COUNT,PLT 292 10^3/uL (150-400); RED BLOOD CELL COUNT 5.01 x10^6/uL (4.50-6.00); WHITE BLOOD CELL COUNT,WBC 9.8 10^3/uL (4.0-11.0)
[2023-05-04 08:23] LABS: CALCIUM 8.8 mg/dL (8.4-10.1); CREATININE 1.1 mg/dL (0.7-1.3); EST CRCL DRUG DOSING (CG) 39.79 mL/min; POTASSIUM,K 3.9 mEq/L (3.5-5.0)
[2023-05-04] MEDS ORDERED: Metoprolol Succinate 25 MG Tab.ER PO SCH (08:30)
[2023-05-04] MEDS ORDERED: Metoprolol Succinate 25 MG Tab.ER PO ONE (08:45)
[2023-05-05] MEDS ORDERED: Metoprolol Succinate 25 MG Tab.ER PO SCH (08:00)
[2023-05-07 15:42] LABS: IGG P18 AB. Absent; IGG P23 AB. Absent; IGG P28 AB. Absent; IGG P30 AB. Absent; IGG P39 AB. Absent; IGG P41 AB. Absent; IGG P45 AB. Absent; IGG P58 AB. Present; IGG P66 AB. Absent; IGG P93 AB. Absent; IGM P23 AB. Absent; IGM P39 AB. Absent; IGM P41 AB. Absent; LYME IGG LINE BLOT INTERP. Negative; LYME IGM LINE BLOT INTERP. Negative
== END 2023-05-04 11:05 | disposition swing bed (61) | DRG 194 ==
LOC: CC.FCMC 11:34 → CC.MS 11:34 → UNDOADMIN 13:00 → CC.MS 13:00
PROVIDERS: ADMIT Physician Assistant Medical; ATTEND Nurse Practitioner
DX: J18.9 Pneumonia, unspecified organism (principal); F05 Delirium due to known physiological condition; Z68.1 Body mass index [BMI] 19.9 or less, adult; E86.0 Dehydration; R29.6 Repeated falls; R62.7 Adult failure to thrive; M54.50 Low back pain, unspecified; H91.90 Unspecified hearing loss, unspecified ear; M19.90 Unspecified osteoarthritis, unspecified site; G89.29 Other chronic pain; M54.2 Cervicalgia; Z98.49 Cataract extraction status, unspecified eye; Z95.1 Presence of aortocoronary bypass graft; Z90.49 Acquired absence of other specified parts of digestive tract; Z88.0 Allergy status to penicillin; Z79.82 Long term (current) use of aspirin; Z98.890 Other specified postprocedural states; Z79.899 Other long term (current) drug therapy; Z88.8 Allergy status to other drugs, medicaments and biological substances; Z98.52 Vasectomy status
CPT/HCPCS: 36415; 70450; 71046; 71101-RT; 72125; 74177; 80048; 80053; 81003; 83735; 85025; 86617; 86618; 93005; 93010; 97110-GP; 97161-GP; 99223; 99232; 99233; 99239; A9270-GY; J0696; J7030; Q9967

== ENCOUNTER 2023-05-04 11:05 | Inpatient (IN) | payer MEDICARE, OTHER ==
[2023-05-04] MEDS ORDERED: Nitroglycerin 0.4 MG Tab.SL SL PRN (12:37)
[2023-05-04] MEDS ORDERED: Acetaminophen/HYDROcodone 325-5 MG Tab PO PRN (12:37)
[2023-05-04] MEDS ORDERED: cefTRIAXone 1 GM Vial IVPUSH SCH (12:45)
[2023-05-04] MEDS ORDERED: Meclizine 12.5 MG Tab PO PRN (12:54)
[2023-05-04] MEDS ORDERED: Non-Formulary Medication 1 Each (Azelastine Hcl [Azelastine Hcl] 137 MCG/0.137 ML Spray.Pu NS SCH (20:00)
[2023-05-04] MEDS ORDERED: Doxycycline 100 MG Tab PO SCH (20:00)
[2023-05-04] MEDS: Melatonin 3 MG Tab PO SCH (22:35)
[2023-05-05] MEDS: Folic Acid 1 MG Tab PO SCH (07:57)
[2023-05-05] MEDS: Metoprolol Succinate 25 MG Tab.ER PO SCH (07:57)
[2023-05-05] MEDS: Aspirin 81 MG Tab.EC PO SCH (07:58)
[2023-05-05] MEDS: Lisinopril 5 MG Tab PO SCH (07:58)
[2023-05-05] MEDS: Ezetimibe 10 MG Tab PO SCH (19:27)
[2023-05-05] MEDS: Melatonin 3 MG Tab PO SCH (19:27)
[2023-05-05] MEDS: traZODone 50 MG Tab PO SCH (19:27)
[2023-05-05] MEDS: Nicotine 14 MG/24 Hr Patch TRDERM SCH (20:06)
[2023-05-06] MEDS: Lisinopril 5 MG Tab PO SCH (08:16)
[2023-05-06] MEDS: Folic Acid 1 MG Tab PO SCH (08:17)
[2023-05-06] MEDS: Metoprolol Succinate 25 MG Tab.ER PO SCH (08:18)
[2023-05-06] MEDS: Nicotine 14 MG/24 Hr Patch TRDERM SCH (08:18)
[2023-05-06] MEDS: Aspirin 81 MG Tab.EC PO SCH (08:18)
[2023-05-06] MEDS: Melatonin 3 MG Tab PO SCH (19:32)
[2023-05-06] MEDS: Ezetimibe 10 MG Tab PO SCH (19:32)
[2023-05-06] MEDS: traZODone 50 MG Tab PO SCH (19:32)
[2023-05-07] MEDS: Lisinopril 5 MG Tab PO SCH (10:05)
[2023-05-07] MEDS: Metoprolol Succinate 25 MG Tab.ER PO SCH (10:06)
[2023-05-07] MEDS: Nicotine 14 MG/24 Hr Patch TRDERM SCH (10:07)
[2023-05-07] MEDS: Aspirin 81 MG Tab.EC PO SCH (10:07)
[2023-05-07] MEDS: Folic Acid 1 MG Tab PO SCH (10:07)
[2023-05-07] MEDS: Acetaminophen 325 MG Tab PO PRN (15:47)
[2023-05-07] MEDS: Melatonin 3 MG Tab PO SCH (19:18)
[2023-05-07] MEDS: traZODone 50 MG Tab PO SCH (19:18)
[2023-05-07] MEDS: Ezetimibe 10 MG Tab PO SCH (19:18)
[2023-05-08] MEDS: Acetaminophen 325 MG Tab PO PRN ×2 (03:34→22:36)
[2023-05-08] MEDS: Folic Acid 1 MG Tab PO SCH (07:58)
[2023-05-08] MEDS: Lisinopril 5 MG Tab PO SCH (07:58)
[2023-05-08] MEDS: Metoprolol Succinate 25 MG Tab.ER PO SCH (07:59)
[2023-05-08] MEDS: Nicotine 14 MG/24 Hr Patch TRDERM SCH (08:00)
[2023-05-08] MEDS: Aspirin 81 MG Tab.EC PO SCH (08:00)
[2023-05-08] MEDS: Ezetimibe 10 MG Tab PO SCH (19:26)
[2023-05-08] MEDS: traZODone 50 MG Tab PO SCH (19:26)
[2023-05-08] MEDS: Melatonin 3 MG Tab PO SCH (19:26)
[2023-05-09] MEDS: Metoprolol Succinate 25 MG Tab.ER PO SCH (07:51)
[2023-05-09] MEDS: Lisinopril 5 MG Tab PO SCH (07:51)
[2023-05-09] MEDS: Folic Acid 1 MG Tab PO SCH (07:51)
[2023-05-09] MEDS: Aspirin 81 MG Tab.EC PO SCH (07:51)
[2023-05-09] MEDS: Nicotine 14 MG/24 Hr Patch TRDERM SCH (07:52)
[2023-05-09] MEDS: Ezetimibe 10 MG Tab PO SCH (19:12)
[2023-05-09] MEDS: traZODone 50 MG Tab PO SCH (19:12)
[2023-05-09] MEDS: Melatonin 3 MG Tab PO SCH (19:12)
[2023-05-09] MEDS ORDERED: Polyethylene Glycol 3350 Powder 17 GM Packet PO PRN (19:38)
[2023-05-09] MEDS: Acetaminophen 325 MG Tab PO PRN (19:38)
[2023-05-10] MEDS: Nicotine 14 MG/24 Hr Patch TRDERM SCH (08:04)
[2023-05-10] MEDS: Metoprolol Succinate 25 MG Tab.ER PO SCH (08:05)
[2023-05-10] MEDS: Lisinopril 5 MG Tab PO SCH (08:05)
[2023-05-10] MEDS: Aspirin 81 MG Tab.EC PO SCH (08:05)
[2023-05-10 08:06] VITALS: BP 155/53; PULSE 61
[2023-05-10] MEDS: Folic Acid 1 MG Tab PO SCH (08:06)
== END 2023-05-10 09:53 | DRG 947 ==
LOC: UNDOADMIN 11:05 → CC.MS 11:05
PROVIDERS: ADMIT Nurse Practitioner Family; ATTEND Nurse Practitioner Family
DX: R41.0 Disorientation, unspecified (principal); J18.9 Pneumonia, unspecified organism; Z68.1 Body mass index [BMI] 19.9 or less, adult; E86.0 Dehydration; R29.6 Repeated falls; R62.7 Adult failure to thrive; R44.1 Visual hallucinations; G47.00 Insomnia, unspecified; R42 Dizziness and giddiness; F17.200 Nicotine dependence, unspecified, uncomplicated; Z88.0 Allergy status to penicillin; Z91.030 Bee allergy status; Z88.8 Allergy status to other drugs, medicaments and biological substances; Z91.018 Allergy to other foods; Z88.1 Allergy status to other antibiotic agents; Z90.79 Acquired absence of other genital organ(s); Z79.82 Long term (current) use of aspirin; Z79.899 Other long term (current) drug therapy
CPT/HCPCS: 93880; 97110-GP; 99307; 99315; A9270-GY; J0696